=== PATIENT | female | born 1935 | race Caucasian/White ===

== ENCOUNTER 2016-10-17 18:28 | Emergency (ER) | payer MEDICARE, BC ==
--- NOTE | 2016-10-17 20:38 | EDM.PDOC ---
[id number] 2d DONT FEEL GOOD ALL OVER Time Seen by Provider: 10/17/16 19:40 Source of Information: Reports: Patient, Family History Limitations: Reports: No Limitations - History of Present Illness INITIAL COMMENTS - FREE TEXT/NARRATIVE: 80-year-old female with a history of a stroke in 2012 causing some chronic confusion, who also has developed dementia usually gets around well with the assistance of her . Today she feels weak, generalized malaise and her is having difficulty ambulating her. She has no specific complaints, no fever or chills, no shortness of breath, nausea or vomiting, just doesn't feel good. No dysuria, no recent falls. Tonight she told her she wanted to come to the hospital. When I asked her what was wrong she said "nothing". Onset: Gradual (Apparently over the last 24 hours) Location: Reports: Generalized Severity: Mild Associated Symptoms: Reports: Weakness. Denies: Chest Pain, Cough, Fever/Chills , Headaches, Nausea/Vomiting, Shortness of Breath, Syncope denies Pain Score (Numeric/FACES): 0 - Related Data Allergies Allergy/AdvReac Type Severity Reaction Status Date / Time No Known Allergies Allergy Verified 10/17/16 19:21 Home Meds: Home Meds Alendronate Sodium [Fosamax] 70 mg PO WEEKLY 02/08/13 [History] Hydrochlorothiazide 12.5 mg PO DAILY 02/08/13 [History] Multivitamin [Multivitamins] 1 each PO DAILY 02/08/13 [History] Omeprazole [Prilosec] 20 mg PO DAILY 02/08/13 [History] Simvastatin [Zocor] 40 mg PO BEDTIME 02/08/13 [History] Warfarin [Coumadin] 2.5 mg PO DAILY@1300 90 Days 02/14/13 [Rx] Potassium Chloride 1 tab PO DAILY 11/21/14 [History] Metoprolol Tartrate 50 mg PO BEDTIME 10/17/16 [History] Past Medical History HEENT History: Reports: Impaired Vision Cardiovascular History: Reports: High Cholesterol, Hypertension Genitourinary History: Reports: UTI, Recurrent Other Genitourinary History: recent uti 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: Neurological History: Reports: CVA, TIA Psychiatric History: Reports: Dementia - Infectious Disease History Infectious Disease History: Reports: Chicken Pox, Measles, Mumps - Past Surgical History GI Surgical History: Reports: Appendectomy Social & Family History - Family History Cardiac: Reports: Hypertension, [place] Neurological: Reports: CVA - Tobacco Use Smoking Status *Q: Never Smoker Second Hand Smoke Exposure: No - Caffeine Use Caffeine Use: Reports: Soda, Tea - Alcohol Use Days Per Week of Alcohol Use: 0 Number of Drinks Per Day: 1 Total Drinks Per Week: 0 - Recreational Drug Use Recreational Drug Use: No - Living Situation & Occupation Living situation: Reports: , with Spouse Occupation: Retired ED ROS GENERAL - Review of Systems Review Of Systems: See Below Constitutional: Reports: Malaise, Weakness. Denies: Fever, Chills HEENT: Reports: No Symptoms Respiratory: Denies: Shortness of Breath, Cough Cardiovascular: Denies: Chest Pain Endocrine: Reports: Fatigue GI/Abdominal: Denies: Abdominal Pain, Nausea, Vomiting : Reports: No Symptoms Skin: Reports: No Symptoms Neurological: Denies: Dizziness, Headache Psychiatric: Reports: Other (Has some ongoing and worsening dementia) ED EXAM, GENERAL - Physical Exam Exam: See Below Exam Limited By: No Limitations General Appearance: Alert, No Apparent Distress Eye Exam: Bilateral Eye: EOMI, Normal Inspection Respiratory/Chest: No Respiratory Distress, Lungs Clear Cardiovascular: Regular Rate, Rhythm GI/Abdominal: Soft, Non-Tender Extremities: Normal Inspection Neurological: Alert, No Motor/Sensory Deficits Psychiatric: Normal Affect, Normal Mood Skin Exam: Warm, Dry Course - Vital Signs Last Recorded V/S: Last Vital Signs Temp 97.2 F 10/17/16 19:35 Pulse 58 L 10/17/16 20:44 Resp 18 10/17/16 20:44 BP 145/82 H 10/17/16 20:44 Pulse Ox 98 10/17/16 20:44 - Orders/Labs/Meds Orders: Active Orders 24 hr Category Date Time Status CULTURE URINE [RM] Stat Lab 10/17/16 21:05 Received Labs: Laboratory Tests 10/17/16 10/17/16 10/17/16 Range/Units 20:06 20:06 20:44 WBC 9.9 (4.5-11.0) K/uL RBC 4.60 (3.30-5.50) M/uL Hgb 13.7 (12.0-15.0) g/dL Hct 41.4 (36.0-48.0) % MCV 90 (80-98) fL MCH 30 (27-31) pg MCHC 33 (32-36) % Plt Count 319 (150-400) K/uL Neut % (Auto) 64 (36-66) % Lymph % (Auto) 23 L (24-44) % [place] % (Auto) 9 H (2-6) % Eos % (Auto) 4 (2-4) % Baso % (Auto) 1 (0-1) % Sodium 142 (140-148) mmol/L Potassium 3.6 (3.6-5.2) mmol/L Chloride 105 (100-108) mmol/L Carbon Dioxide 28 (21-32) mmol/L Anion Gap 9.1 (5.0-14.0) mmol/L BUN 19 H (7-18) mg/dL Creatinine 1.1 H (0.6-1.0) mg/dL Est Cr Clr Drug Dosing 28.32 mL/min Estimated GFR (MDRD) 48 L (>60) Glucose 102 (74-106) mg/dL Calcium 8.8 (8.5-10.1) mg/dL Total Bilirubin 0.4 (0.2-1.0) mg/dL AST 19 (15-37) U/L ALT 19 (12-78) U/L Alkaline Phosphatase 83 (46-116) U/L Troponin I < 0.017 (0.000-0.056) ng/mL Total Protein 7.9 (6.4-8.2) g/dL Albumin 3.4 (3.4-5.0) g/dL Globulin 4.5 H (2.3-3.5) g/dL Albumin/Globulin Ratio 0.8 L (1.2-2.2) Urine Color Yellow Urine Appearance Clear Urine pH 5.0 (4.5-8.0) Ur Specific [place] 1.020 (1.008-1.030) Urine Protein Negative (NEGATIVE) mg/dL Urine Glucose (UA) Normal (NEGATIVE) mg/dL Urine Ketones Negative (NEGATIVE) mg/dL Urine Occult Blood Moderate (NEGATIVE) Urine Nitrite Positive H (NEGATIVE) Urine Bilirubin Negative (NEGATIVE) Urine Urobilinogen Normal (NORMAL) mg/dL Ur Leukocyte Esterase Negative (NEGATIVE) Urine RBC 0-5 (0-5) Urine WBC 10-20 H (0-5) Ur Epithelial Cells Few Amorphous Sediment Not seen Urine Bacteria Many Urine Mucus Few - Re-Assessments/Exams Free Text/Narrative Re-Assessment/Exam: 10/17/16 20:38 A mini cath UA was obtained, along with a CBC CMP and troponin. 10/17/16 21:11 Her labs were all reassuring other than bacteria and nitrite positive UA. A culture will be started and the patient was put on Macrodantin 100 mg twice daily for 5 days. They can return anytime if worsening or concerns. Departure - Departure Time of Disposition: 21:46 Disposition: Home, Self-Care 01 Condition: good Clinical Impression: Cystitis - Discharge Information Instructions: Interstitial Cystitis Referrals: PCP,None [Primary Care Provider] - Forms: ED Department Discharge Care Plan Goals: Take one dose of antibiotic twice daily for a total of 5 days. Save remaining antibiotic for a possible future infection. Return to ER for evaluation if becoming weaker or other concerns. - My Orders Last 24 Hours: My Active Orders 10/17/16 21:05 CULTURE URINE [RM] Stat - Assessment/Plan Last 24 Hours: My Active Orders 10/17/16 21:05 CULTURE URINE [RM] Stat
[2016-10-17 20:45] VITALS: BP 145/82
== END 2016-10-17 21:46 | disposition home or self-care (01) ==
LOC: JP.ED 18:28
DX: N30.90 Cystitis, unspecified without hematuria (principal); I10 Essential (primary) hypertension; E78.00 Pure hypercholesterolemia, unspecified; Z87.440 Personal history of urinary (tract) infections; Z86.73 Personal history of transient ischemic attack (TIA), and cerebral infarction without residual deficits; Z79.899 Other long term (current) drug therapy; Z79.01 Long term (current) use of anticoagulants; Z90.49 Acquired absence of other specified parts of digestive tract
CPT/HCPCS: 36415; 80053; 81001; 84484; 85025; 87086; 87088; 87186; 99283; 99285

== ENCOUNTER 2016-11-12 19:17 | Inpatient (IN) | payer MEDICARE, BC ==
--- NOTE | 2016-11-12 19:44 | EDM.PDOC ---
[id number] 2d DOESNT FEEL GOOD Time Seen by Provider: 11/12/16 19:44 Source of Information: Reports: Patient, Family History Limitations: Reports: No Limitations - History of Present Illness INITIAL COMMENTS - FREE TEXT/NARRATIVE: pt was brouight to the er because she does not feel right. She has a low grade temp. She has not been vomiting but she did not eat tonight. She is weaker with her walking and gets quite sob when she walks. She denies chest pain. Onset: Gradual Duration: Day(s):, Other ( gradually weaker. She has a past history of a stroke , ) Location: Reports: Generalized Severity: Moderate Associated Symptoms: Reports: Loss of Appetite, Malaise, Shortness of Breath denies pain Pain Score (Numeric/FACES): 0 - Related Data Allergies Allergy/AdvReac Type Severity Reaction Status Date / Time No Known Allergies Allergy Verified 11/12/16 19:30 Home Meds: Home Meds Alendronate Sodium [Fosamax] 70 mg PO WEEKLY 02/08/13 [History] Hydrochlorothiazide 12.5 mg PO DAILY 02/08/13 [History] Multivitamin [Multivitamins] 1 each PO DAILY 02/08/13 [History] Omeprazole [Prilosec] 20 mg PO DAILY 02/08/13 [History] Simvastatin [Zocor] 40 mg PO BEDTIME 02/08/13 [History] Potassium Chloride 10 meq PO DAILY 11/21/14 [History] Metoprolol Tartrate 50 mg PO BEDTIME 10/17/16 [History] Latanoprost 1 drop EYEBOTH BEDTIME 11/12/16 [History] Warfarin [Coumadin] 2.5 mg PO BEDTIME 11/12/16 [History] Cephalexin 500 mg PO BID #7 capsule 11/14/16 [Rx] Past Medical History HEENT History: Reports: Impaired Vision Cardiovascular History: Reports: High Cholesterol, Hypertension Genitourinary History: Reports: UTI, Recurrent Other Genitourinary History: 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 uti 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: Neurological History: Reports: CVA, TIA, Other (See Below) Other Neuro History: x2 strokes Psychiatric History: Reports: Dementia - Infectious Disease History Infectious Disease History: Reports: Chicken Pox, Measles - Past Surgical History GI Surgical History: Reports: Appendectomy Social & Family History - Family History Cardiac: Reports: Hypertension, [place] Neurological: Reports: CVA - Tobacco Use Smoking Status *Q: Never Smoker Second Hand Smoke Exposure: No - Caffeine Use Caffeine Use: Reports: Coffee, Soda - Alcohol Use Days Per Week of Alcohol Use: 0 Number of Drinks Per Day: 1 Total Drinks Per Week: 0 - Recreational Drug Use Recreational Drug Use: No - Living Situation & Occupation Living situation: Reports: , with Spouse Occupation: Retired ED ROS GENERAL - Review of Systems Review Of Systems: See Below Constitutional: Reports: Fever, Chills, Malaise HEENT: Reports: No Symptoms, Other (pt has not been drinking well. ) Respiratory: Reports: Shortness of Breath Cardiovascular: Reports: No Symptoms Endocrine: Reports: No Symptoms GI/Abdominal: Reports: No Symptoms : Reports: Other (pt was treated for a uti about 10 days ago. ) Musculoskeletal: Reports: No Symptoms Skin: Reports: No Symptoms ED EXAM, GENERAL - Physical Exam Exam: See Below Free Text/Narrative:: pt arrived with dizziness. She has not been drinking fluids well. She started out with a low o2 sat but that has improved. She has been alot weaker when she walks. She refused to drink and eat tonight. She has a history of a stroke and dementia. General Appearance: Alert, Anxious, Other (pt is not able to give a good history. ) Ears: Normal TMs Nose: Normal Inspection Throat/Mouth: Normal Inspection Head: Atraumatic Neck: Normal Inspection Respiratory/Chest: No Respiratory Distress, Other ( o2 sats were low but are now better. ) Cardiovascular: Regular Rate, Rhythm GI/Abdominal: Soft, Non-Tender Rectal (Female) Exam: Deferred Back Exam: Normal Inspection Extremities: Normal Inspection Neurological: Alert, Oriented, Other (pt has some memory issues. ) Course - Vital Signs Last Recorded V/S: Last Vital Signs Temp 36.6 C 11/14/16 07:47 Pulse 65 11/14/16 07:47 Resp 20 11/14/16 07:47 BP 139/79 11/14/16 07:47 Pulse Ox 96 11/14/16 07:47 - Orders/Labs/Meds Labs: Laboratory Tests 11/12/16 11/12/16 11/12/16 Range/Units 19:53 19:53 19:53 WBC 8.3 (4.5-11.0) K/uL RBC 4.39 (3.30-5.50) M/uL Hgb 13.0 (12.0-15.0) g/dL Hct 39.7 (36.0-48.0) % MCV 90 (80-98) fL MCH 30 (27-31) pg MCHC 33 (32-36) % Plt Count 312 (150-400) K/uL Neut % (Auto) 64 (36-66) % Lymph % (Auto) 20 L (24-44) % [place] % (Auto) 10 H (2-6) % Eos % (Auto) 6 H (2-4) % Baso % (Auto) 1 (0-1) % PT 22.1 H (9.5-12.0) sec INR 2.01 H (0.80-1.20) Sodium 141 (140-148) mmol/L Potassium 3.7 (3.6-5.2) mmol/L Chloride 106 (100-108) mmol/L Carbon Dioxide 27 (21-32) mmol/L Anion Gap 8.5 (5.0-14.0) mmol/L BUN 29 H D (7-18) mg/dL Creatinine 1.1 H (0.6-1.0) mg/dL Est Cr Clr Drug Dosing 28.32 mL/min Estimated GFR (MDRD) 48 L (>60) Glucose 100 (74-106) mg/dL Lactic Acid (0.4-2.0) mmol/L Calcium 8.9 (8.5-10.1) mg/dL Total Bilirubin 0.3 (0.2-1.0) mg/dL AST 17 (15-37) U/L ALT 18 (12-78) U/L Alkaline Phosphatase 64 (46-116) U/L Civ-[id number] Pept (5-450) pg/mL Total Protein 7.2 (6.4-8.2) g/dL Albumin 3.2 L (3.4-5.0) g/dL Globulin 4.0 H (2.3-3.5) g/dL Albumin/Globulin Ratio 0.8 L (1.2-2.2) Urine Color Urine Appearance Urine pH (4.5-8.0) Ur Specific [place] (1.008-1.030) Urine Protein (NEGATIVE) mg/dL Urine Glucose (UA) (NEGATIVE) mg/dL Urine Ketones (NEGATIVE) mg/dL Urine Occult Blood (NEGATIVE) Urine Nitrite (NEGATIVE) Urine Bilirubin (NEGATIVE) Urine Urobilinogen (NORMAL) mg/dL Ur Leukocyte Esterase (NEGATIVE) Urine RBC (0-5) Urine WBC (0-5) Ur Epithelial Cells Amorphous Sediment Urine Bacteria Urine Mucus 11/12/16 11/12/16 11/12/16 Range/Units 20:09 20:17 20:35 WBC (4.5-11.0) K/uL RBC (3.30-5.50) M/uL Hgb (12.0-15.0) g/dL Hct (36.0-48.0) % MCV (80-98) fL MCH (27-31) pg MCHC (32-36) % Plt Count (150-400) K/uL Neut % (Auto) (36-66) % Lymph % (Auto) (24-44) % [place] % (Auto) (2-6) % Eos % (Auto) (2-4) % Baso % (Auto) (0-1) % PT (9.5-12.0) sec INR (0.80-1.20) Sodium (140-148) mmol/L Potassium (3.6-5.2) mmol/L Chloride (100-108) mmol/L Carbon Dioxide (21-32) mmol/L Anion Gap (5.0-14.0) mmol/L BUN (7-18) mg/dL Creatinine (0.6-1.0) mg/dL Est Cr Clr Drug Dosing mL/min Estimated GFR (MDRD) (>60) Glucose (74-106) mg/dL Lactic Acid 1.0 (0.4-2.0) mmol/L Calcium (8.5-10.1) mg/dL Total Bilirubin (0.2-1.0) mg/dL AST (15-37) U/L ALT (12-78) U/L Alkaline Phosphatase (46-116) U/L Pot-P-Gklslmojoqn Pept 212 (5-450) pg/mL Total Protein (6.4-8.2) g/dL Albumin (3.4-5.0) g/dL Globulin (2.3-3.5) g/dL Albumin/Globulin Ratio (1.2-2.2) Urine Color Yellow Urine Appearance Slightly cloudy Urine pH 5.0 (4.5-8.0) Ur Specific [place] 1.020 (1.008-1.030) Urine Protein Negative (NEGATIVE) mg/dL Urine Glucose (UA) Normal (NEGATIVE) mg/dL Urine Ketones Negative (NEGATIVE) mg/dL Urine Occult Blood Negative (NEGATIVE) Urine Nitrite Positive H (NEGATIVE) Urine Bilirubin Negative (NEGATIVE) Urine Urobilinogen Normal (NORMAL) mg/dL Ur Leukocyte Esterase Negative (NEGATIVE) Urine RBC 0-5 (0-5) Urine WBC 0-5 (0-5) Ur Epithelial Cells Not seen Amorphous Sediment Not seen Urine Bacteria Many Urine Mucus Not seen Meds: Medications Discontinued Medications Generic Name Dose Route Start Last Admin Trade Name Freq PRN Reason Stop Dose Admin Acetaminophen 650 mg 11/12/16 23:09 Tylenol PO Q4H PRN Pain (Mild 1-3)/fever Albuterol 2.5 mg 11/12/16 23:09 Proventil Neb Soln NEB Q4H PRN Shortness Of Breath/wheezing Bisacodyl 5 mg 11/12/16 23:09 Dulcolax PO DAILY PRN Constipation Docusate Sodium 100 mg 11/12/16 23:09 Colace PO BID PRN Constipation Hydrochlorothiazide 12.5 mg 11/13/16 09:00 11/14/16 09:21 Hydrochlorothiazide PO 12.5 mg DAILY FCO Administration Sodium Chloride 1,000 mls @ 250 mls/hr 11/12/16 20:45 11/13/16 01:25 Normal Saline IV 250 mls/hr ASDIRECTED FCO Administration Ceftriaxone Sodium 1 gm/ 50 mls @ 100 mls/hr 11/12/16 20:59 11/12/16 21:25 Sodium Chloride IV 11/12/16 21:28 100 mls/hr ONETIME ONE Administration Sodium Chloride 1,000 mls @ 75 mls/hr 11/12/16 23:09 Normal Saline IV ASDIRECTED FCO Ceftriaxone Sodium 1 gm/ 50 mls @ 100 mls/hr 11/13/16 21:10 11/13/16 20:54 Sodium Chloride IV 100 mls/hr Q24H FCO Administration Latanoprost 0 ml 11/13/16 21:00 11/13/16 20:55 Xalatan 0.005% Ophth Soln EYEBOTH 1 drop BEDTIME FCO Administration Lorazepam 0.5 mg 11/12/16 23:09 Ativan IV Q6H PRN Nausea/Vomiting Metoprolol Tartrate 50 mg 11/13/16 21:00 11/13/16 20:55 Lopressor PO 50 mg BEDTIME FCO Administration Metoprolol Tartrate 50 mg 11/13/16 01:02 11/13/16 01:19 Lopressor PO 11/13/16 01:03 50 mg ONETIME ONE Administration Ondansetron HCl 4 mg 11/12/16 23:09 Zofran Odt PO Q6H PRN Nausea able to take PO Ondansetron HCl 4 mg 11/12/16 23:09 Zofran IV Q4H PRN Nausea/Vomiting Oxycodone HCl 5 mg 11/12/16 23:09 Oxycodone PO Q4H PRN Pain (moderate 4-6) Pantoprazole Sodium 40 mg 11/13/16 07:30 11/14/16 07:57 Protonix PO 40 mg ACBREAKFAST FCO Administration Potassium Chloride 10 meq 11/13/16 09:00 11/14/16 09:21 Potassium Chloride PO 10 meq DAILY FCO Administration Warfarin Sodium 2.5 mg 11/13/16 21:00 11/13/16 20:56 Coumadin PO 2.5 mg BEDTIME FCO Administration - Re-Assessments/Exams Free Text/Narrative Re-Assessment/Exam: 11/12/16 21:36 urine is infected. her wbc is not elevated. Her urine looks concentrated. she has a definite uti. 11/15/16 07:29 Departure - Departure Time of Disposition: 07:50 Disposition: Admitted As Inpatient 64 Condition: fair Clinical Impression: Dehydration UTI (urinary tract infection) Qualifiers: Indwelling urinary catheter type: unspecified Encounter type: initial encounter - Discharge Information
[2016-11-12] MEDS ORDERED: cefTRIAXone 1 GM in Sodium Chloride 0.9% 50 ML IV ONE (20:59)
[2016-11-12] MEDS: Sodium Chloride 0.9% 1,000 ML IV SCH (21:24)
--- NOTE | 2016-11-12 22:55 | PCM.HP ---
H&P History of Present Illness - General Date of Service: 11/12/16 Admit Problem/Dx: Admission Diagnosis/Problem Admission Diagnosis/Problem Urinary tract infection Source of Information: Patient History Limitations: Reports: Altered Mental Status (dementia) - History of Present Illness Initial Comments - Free Text/Narative: - History of Present Illness -brought to the ER because she does not feel right with concerns of dizziness. She has a low grade temp. She has not been vomiting but she did not eat tonight. She is weaker with her walking and gets quite sob when she walks. She denies chest pain. She has not been drinking fluids well. She started out with a low o2 sat but that has improved. She has been a lot weaker when she walks. She has a history of a stroke and dementia. : Reports: Other treated for a urinary tract infection about 10 days ago. LABS: Urine is infected + nitrate, concentrated, wbc is not elevated. a; urinary tract infection, weakness, dehydration p; admit to [address] [place] [address] for IV therapy and medication management. Onset of Symptoms: Reports: Today Location: Reports: Generalized Improves with: Reports: None Worsens with: Reports: None Associated Symptoms: Reports: Confusion ( reports more confused today), Fever/Chills, Loss of Appetite, Weakness denies pain Pain Score (Numeric/FACES): 0 - Related Data Allergies/Adverse Reactions: Allergies Allergy/AdvReac Type Severity Reaction Status Date / Time No Known Allergies Allergy Verified 11/12/16 19:30 Home Medications: Home Meds Alendronate Sodium [Fosamax] 70 mg PO WEEKLY 02/08/13 [History] Hydrochlorothiazide 12.5 mg PO DAILY 02/08/13 [History] Multivitamin [Multivitamins] 1 each PO DAILY 02/08/13 [History] Omeprazole [Prilosec] 20 mg PO DAILY 02/08/13 [History] Simvastatin [Zocor] 40 mg PO BEDTIME 02/08/13 [History] Potassium Chloride 10 meq PO DAILY 11/21/14 [History] Metoprolol Tartrate 50 mg PO BEDTIME 10/17/16 [History] Latanoprost [Latanoprost] 1 drop EYEBOTH BEDTIME 11/12/16 [History] Warfarin [Coumadin] 2.5 mg PO BEDTIME 11/12/16 [History] Past Medical History HEENT History: Reports: Impaired Vision Cardiovascular History: Reports: High Cholesterol, Hypertension Genitourinary History: Reports: UTI, Recurrent Other Genitourinary History: recent uti 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: Neurological History: Reports: CVA, TIA, Other (See Below) Other Neuro History: x2 strokes Psychiatric History: Reports: Dementia - Infectious Disease History Infectious Disease History: Reports: Chicken Pox, Measles - Past Surgical History GI Surgical History: Reports: Appendectomy Social & Family History - Family History Cardiac: Reports: Hypertension, [place] Neurological: Reports: CVA - Tobacco Use Smoking Status *Q: Never Smoker Second Hand Smoke Exposure: No - Caffeine Use Caffeine Use: Reports: Coffee, Soda - Alcohol Use Days Per Week of Alcohol Use: 0 Number of Drinks Per Day: 1 Total Drinks Per Week: 0 - Recreational Drug Use Recreational Drug Use: No - Living Situation & Occupation Living situation: Reports: , with Spouse Occupation: Retired H&P Review of Systems - Review of Systems: Review Of Systems: See Below General: Reports: ROS unobtainable (due to dementia. ) Exam - Exam Exam: See Below - Vital Signs Vital Signs: Last Vital Signs Temp 36.7 C 11/12/16 21:55 Pulse 58 L 11/12/16 21:55 Resp 16 11/12/16 21:55 BP 132/84 11/12/16 21:55 Pulse Ox 95 11/12/16 21:55 Weight: 65.771 kg - Exam General: Alert, Cooperative, Other (dementia noted) HEENT: PERRLA, Conjunctiva Clear, EACs Clear, EOMI, Hearing Intact, Mucosa Moist & [place], Nares Patent, Normal Nasal Septum, Posterior Pharynx Clear, Pupils Equal, Pupils Reactive, TMs Clear, Other (natural teeth present) Neck: Supple, Trachea Midline Lungs: Clear to Auscultation, Normal Respiratory Effort Cardiovascular: Regular Rate, Regular Rhythm, Normal S1, Normal S2 Abdomen: Normal Bowel Sounds, Soft, Pelvis Stable (Female) Exam: Normal External Exam Rectal (Female) Exam: Deferred Back Exam: Normal Inspection, Full Range of Motion Extremities: Normal Inspection, Normal Pulses Peripheral Pulses: 2+: Radial (L), Radial (R), Dorsalis Pedis (L), Dorsalis Pedis (R) Skin: Warm, Dry, Intact Neurological: Reflexes Equal Bilateral, Strength Equal Bilateral Neuro Extensive - Mental Status: Other (dementia present. pleasant, smiling female. answer in one word symptom.) Psychiatric: Alert, Normal Affect, Normal Mood (happy and pleasant) - Patient Data Result Diagrams: 11/12/16 19:53 11/12/16 19:53 *Q Meaningful Use (ADM) - VTE *Q VTE Criteria *Q: - Stroke *Q Stroke Criteria *Q: - AMI *Q AMI Criteria *Q: - Problem List (1) Urinary tract infection SNOMED Code(s): 73378784 ICD Code: N39.0 - URINARY TRACT INFECTION, SITE NOT SPECIFIED Status: Acute Priority: High Current Visit: Yes Qualifiers: Indwelling urinary catheter type: unspecified Encounter type: initial encounter (2) Dementia SNOMED Code(s): 11979953 ICD Code: F03.90 - UNSPECIFIED DEMENTIA WITHOUT BEHAVIORAL DISTURBANCE Status: Acute Priority: High Current Visit: Yes Qualifiers: Dementia type: associated with other underlying disease Dementia behavioral disturbance: without behavioral disturbance Qualified Code(s): F02.80 - Dementia in other diseases classified elsewhere without behavioral disturbance (3) Gastroesophageal reflux disease SNOMED Code(s): 101345309 ICD Code: K21.9 - GASTRO-ESOPHAGEAL REFLUX DISEASE WITHOUT ESOPHAGITIS Status: Chronic Priority: Medium Current Visit: No (4) HTN, Benign hypertension SNOMED Code(s): 14549671 ICD Code: I10 - ESSENTIAL (PRIMARY) HYPERTENSION Status: Chronic Priority : Medium Current Visit: No (5) Ischemic stroke/CVA SNOMED Code(s): 908816626 ICD Code: I63.9 - CEREBRAL INFARCTION, UNSPECIFIED Status: Chronic Priority: Low Current Visit: No Problem Details: 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 She has a low grade temp. She has not been vomiting but she did not eat tonight. She is weaker with her walking and gets quite sob when she walks. She denies chest pain. She has not been drinking fluids well. She started out with a low o2 sat but that has improved. She has been a lot weaker when she walks. She has a history of a stroke and dementia. : Reports: Other treated for a urinary tract infection about 10 days ago. LABS: Urine is infected + nitrate, concentrated, wbc is not elevated. a; urinary tract infection, weakness, dehydration p; admit to [facility] for IV therapy and medication management. URINARY TRACT INFECTION -Blood cultures pending -IV Rocephin 1 gram -IV fluids ; one liter given in ER, 2nd liter at 75ml/hr Dementia, hx of ischemic CVA -close monitoring -at risk for falls GERD -continue PPI ; Protonix 40mg daily Hypertension and CAD -continue Lopressor 50 mg at hs -continue HCTZ 12.5 mg po daily -continue Potassium 10 meq daily -continue Coumadin 2.5mg daily Maintenance issues -DVT prophylaxis; current Coumadin therapy -GI Prophylaxis; continue PPI -Boyle catheter; not indicated -Nutrition; regular diet -referral OT and social work; discharge planning CODE STATUS; FULL ADMISSION STATUS: will be admitted to inpatient status. expect at least a 2 night hospital stay for evaluation and management of problems as outlined above. At the time of this admission, I do not reasonably expected evaluation and management of this problem will require more than a 96 hour hospital stay. DISPOSITION: home PRIMARY CARE PROVIDER: none listed HOSPITALIST: Dr. Kwon
[2016-11-12] MEDS ORDERED: Bisacodyl 5 MG Tab PO PRN (23:09)
[2016-11-12] MEDS ORDERED: Sodium Chloride 0.9% 1,000 ML IV SCH (23:09)
[2016-11-12] MEDS ORDERED: LORazepam 2 MG/ML MDV IV PRN (23:09)
[2016-11-12] MEDS ORDERED: Ondansetron 4 MG/2 ML SDV IV PRN (23:09)
[2016-11-12] MEDS ORDERED: Docusate Sodium 100 MG Cap PO PRN (23:09)
[2016-11-12] MEDS ORDERED: Acetaminophen 325 MG Tab PO PRN (23:09)
[2016-11-12] MEDS ORDERED: oxyCODONE 5 MG Tab PO PRN (23:09)
[2016-11-12] MEDS ORDERED: Ondansetron 4 MG Tab.DIS PO PRN (23:09)
[2016-11-12] MEDS ORDERED: Albuterol 0.083% 2.5 MG/3 ML Neb Soln NEB PRN (23:09)
[2016-11-13] MEDS ORDERED: Metoprolol Tartrate 50 MG Tab PO ONE (01:02)
--- NOTE | 2016-11-13 01:21 | PCM.SN ---
- Free Text/Narrative Note: time 12:58 am; call from [address] [place] [address]; concerns of increased blood pressure; 192/98 and 165/101 Mrs. Becerril is sleeping and in no distress a; hypertension p; given evening dose of Lopressor 50 mg po now. recheck blood pressure in 4 hours.
[2016-11-13] MEDS: Sodium Chloride 0.9% 1,000 ML IV SCH (01:25)
[2016-11-13] MEDS: Potassium Chloride 10 MEQ Cap.ER PO SCH (09:24)
[2016-11-13] MEDS: Pantoprazole 40 MG Tab.CR PO SCH (09:24)
[2016-11-13] MEDS: Hydrochlorothiazide 12.5 MG Cap PO SCH (09:24)
--- NOTE | 2016-11-13 09:26 | CR ---
Two-view chest Comparison: March 2011. The heart and vascular structures are stable. There are no infiltrates or effusions. Impression: 1. No acute findings.
--- NOTE | 2016-11-13 15:42 | PCM.PN ---
- General Info Date of Service: 11/13/16 Functional Status: Reports: pain controlled, ambulating, urinating - Review of Systems General: Reports: Weakness Neurological: Reports: Confusion Systems Review Comment:: No acute event since the time of admission. She remains confused beyond baseline but seems better this morning. She is not having fevers. Urine culture is growing gram-negative rods. No complaints of abdominal pain or nausea. Ambulating to the bathroom and back with frequent urination. - Patient Data Vitals - most recent: Last Vital Signs Temp 35.6 C 11/13/16 12:13 Pulse 59 L 11/13/16 12:13 Resp 16 11/13/16 12:13 BP 183/94 H 11/13/16 12:13 Pulse Ox 98 11/13/16 12:13 Weight - most recent: 65.78 kg I&O - last 24 hours: Intake & Output 11/13/16 11/13/16 11/13/16 06:59 14:59 22:59 Intake Total 1200 118 Output Total 200 300 Balance 1000 -182 Lab Results last 24 hrs: Laboratory Results - last 24 hr 11/13/16 11/13/16 Range/Units 05:55 05:55 WBC 8.6 (4.5-11.0) K/uL RBC 4.22 (3.30-5.50) M/uL Hgb 12.5 (12.0-15.0) g/dL Hct 38.2 (36.0-48.0) % MCV 91 (80-98) fL MCH 30 (27-31) pg MCHC 33 (32-36) % Plt Count 304 (150-400) K/uL Neut % (Auto) 66 (36-66) % Lymph % (Auto) 20 L (24-44) % [place] % (Auto) 9 H (2-6) % Eos % (Auto) 6 H (2-4) % Baso % (Auto) 1 (0-1) % Sodium 143 (140-148) mmol/L Potassium 3.7 (3.6-5.2) mmol/L Chloride 110 H (100-108) mmol/L Carbon Dioxide 23 (21-32) mmol/L Anion Gap 13.7 (5.0-14.0) mmol/L BUN 20 H (7-18) mg/dL Creatinine 0.9 (0.6-1.0) mg/dL Est Cr Clr Drug Dosing 34.62 mL/min Estimated GFR (MDRD) 60 (>60) Glucose 94 (74-106) mg/dL Calcium 8.2 L (8.5-10.1) mg/dL Med Orders - Current: Current Medications Acetaminophen (Tylenol) 650 mg PO Q4H PRN PRN Reason: Pain (Mild 1-3)/fever Albuterol (Proventil Neb Soln) 2.5 mg NEB Q4H PRN PRN Reason: Shortness Of Breath/wheezing Bisacodyl (Dulcolax) 5 mg PO DAILY PRN PRN Reason: Constipation Docusate Sodium (Colace) 100 mg PO BID PRN PRN Reason: Constipation Hydrochlorothiazide (Hydrochlorothiazide) 12.5 mg PO DAILY [facility] Last Admin: 11/13/16 09:24 Dose: 12.5 mg Sodium Chloride (Normal Saline) 1,000 mls @ 75 mls/hr IV ASDIRECTED [facility] Ceftriaxone Sodium 1 gm/ (Sodium Chloride) 50 mls @ 100 mls/hr IV Q24H [facility] Latanoprost (Xalatan 0.005% Ophth Soln) 0 ml EYEBOTH BEDTIME [facility] Lorazepam (Ativan) 0.5 mg IV Q6H PRN PRN Reason: Nausea/Vomiting Metoprolol Tartrate (Lopressor) 50 mg PO BEDTIME [facility] Ondansetron HCl (Zofran Odt) 4 mg PO Q6H PRN PRN Reason: Nausea able to take PO Ondansetron HCl (Zofran) 4 mg IV Q4H PRN PRN Reason: Nausea/Vomiting Oxycodone HCl (Oxycodone) 5 mg PO Q4H PRN PRN Reason: Pain (moderate 4-6) Pantoprazole Sodium (Protonix) 40 mg PO ACBREAKFAST [facility] Last Admin: 11/13/16 09:24 Dose: 40 mg Potassium Chloride (Potassium Chloride) 10 meq PO DAILY [facility] Last Admin: 11/13/16 09:24 Dose: 10 meq Warfarin Sodium (Coumadin) 2.5 mg PO BEDTIME [facility] Discontinued Medications Sodium Chloride (Normal Saline) 1,000 mls @ 250 mls/hr IV ASDIRECTED [facility] Last Admin: 11/13/16 01:25 Dose: 250 mls/hr Ceftriaxone Sodium 1 gm/ (Sodium Chloride) 50 mls @ 100 mls/hr IV ONETIME ONE Stop: 11/12/16 21:28 Last Admin: 11/12/16 21:25 Dose: 100 mls/hr Metoprolol Tartrate (Lopressor) 50 mg PO ONETIME ONE Stop: 11/13/16 01:03 Last Admin: 11/13/16 01:19 Dose: 50 mg - Exam Quality Assessment: No: supplemental oxygen General: alert, cooperative, no acute distress. No: oriented Neck: supple Lungs: Clear to auscultation, Normal respiratory effort Cardiovascular: Regular Rate, Regular Rhythm Abdomen: soft, no tenderness, no distension Extremities: no edema, no cyanosis Skin: warm, dry Psy/Mental Status: alert, normal affect - Problem List Review Problem List Initiated/Reviewed/Updated: Yes - My Orders Last 24 Hours: My Active Orders 11/13/16 09:15 PT Evaluation and Treatment [CONS] Routine - Plan Plan:: ASSESSMENT AND PLAN: Acute cystitis - contributing to increased confusion from baseline dementia. Clinically stable. Cultures pending. -Blood cultures pending -Continue ceftriaxone -Saline lock IV Dementia, hx of ischemic CVA - no behavior issues at this time. -close monitoring -at risk for falls GERD -continue PPI Hypertension and CAD - no active symptoms and clinically stable. -continue Lopressor 50 mg at hs -continue HCTZ 12.5 mg po daily -continue Potassium 10 meq daily -continue Coumadin 2.5mg daily Maintenance issues -DVT prophylaxis; current Coumadin therapy -GI Prophylaxis; continue PPI -Boyle catheter; not indicated -Nutrition; regular diet -referral OT and social work; discharge planning DISPOSITION: home with home health care, likely tomorrow Vineet Kwon M.D.
[2016-11-13] MEDS ORDERED: Latanoprost 0.005% Ophth Soln 2.5 ML Bottle EYEBOTH SCH (21:00)
[2016-11-13] MEDS ORDERED: Warfarin 5 MG Tab PO SCH (21:00)
[2016-11-13] MEDS ORDERED: Metoprolol Tartrate 50 MG Tab PO SCH (21:00)
[2016-11-13] MEDS ORDERED: cefTRIAXone 1 GM in Sodium Chloride 0.9% 50 ML IV SCH (21:10)
[2016-11-14 07:49] VITALS: BP 139/79
[2016-11-14] MEDS: Pantoprazole 40 MG Tab.CR PO SCH (07:57)
[2016-11-14] MEDS: Hydrochlorothiazide 12.5 MG Cap PO SCH (09:21)
[2016-11-14] MEDS: Potassium Chloride 10 MEQ Cap.ER PO SCH (09:21)
--- NOTE | 2016-11-14 11:04 | PCM.DCSUM1 ---
Discharge Summary - Hospital Course Brief History: 80-year-old female with history of dementia, cerebrovascular disease who presented with increasing confusion and weakness and was admitted for management of acute cystitis. - Discharge Data Discharge Date: 11/14/16 Discharge Disposition: Home, W Home Health Agency 06 Condition: Fair - Discharge Diagnosis/Problem(s) (1) Acute cystitis with positive culture SNOMED Code(s): 767964913 ICD Code: N30.00 - ACUTE CYSTITIS WITHOUT HEMATURIA Status: Acute (2) Dementia SNOMED Code(s): 78334355 ICD Code: F03.90 - UNSPECIFIED DEMENTIA WITHOUT BEHAVIORAL DISTURBANCE Status: Chronic Priority: High Qualifiers: Dementia type: associated with other underlying disease Dementia behavioral disturbance: without behavioral disturbance Qualified Code(s): F02.80 - Dementia in other diseases classified elsewhere without behavioral disturbance (3) Ischemic stroke/CVA SNOMED Code(s): 315678740 ICD Code: I63.9 - CEREBRAL INFARCTION, UNSPECIFIED Status: Chronic Priority: Low Problem Details: Expressive aphasia and right visual field defects - Patient Summary/Data Consults: Consultations 11/12/16 23:09 Consult to Case Management [CONS] Routine Comment: Physician Instructions: Quantity: Consult to Manager Lsw [CONS] Routine Comment: Physician Instructions: OT Evaluation and Treatment [CONS] Routine Please Evaluate and Treat. OT Reason for Consult: Discharge Planning This query below is only for informational purposes and is not editable. 11/13/16 09:15 PT Evaluation and Treatment [CONS] Routine Please Evaluate and Treat. PT Reason for Consult: weakness, dizzyness, dementia This query below is only for informational purposes and is not editable. Admission Diagnosis/Problem: Urinary tract infection Labs Pending at D/C: final results of the urine culture - gram-negative rods are growing at the time of discharge Hospital Course: Haydee presented to the emergency room with dizziness, decreased appetite and did not feel well. Workup in the emergency room was suggestive of acute cystitis. Given her dementia and concern for difficulty with outpatient management she was admitted to the hospital. IV antibiotics were initiated. Over the next 2 days she displayed a clinical improvement with improvement in her mental status. She has not had any fevers. She seems to be back to her baseline as far as her mental status with underlying dementia. She has been ambulating well with no complaints of dizziness. Appetite has been good. She does have some urinary frequency with the infection but otherwise is doing well clinically. Urine culture is pending at the time of discharge but I suspect that she will have an Escherichia coli and seems to be doing well with cephalosporins so these will be continued. Urine culture is growing gram- negative rods but final identification is pending. She will be discharged to home with her and will have a daughter helping out in the short-term. They're also interested in home health care and a [id number] form was completed. She will have 7 additional doses of cephalexin after hospital discharge. - Patient Instructions Diet: Regular Diet as Tolerated Activity: As Tolerated Driving: Do Not Drive Showering/Bathing: May Shower Notify Provider of: Fever, Increased Pain, Nausea and/or Vomiting Other/Special Instructions: 1. You were in the hospital for management of acute cystitis. I recommend that you take cephalexin (Keflex) 500 mg twice daily for 7 more doses. Your first dose is due tonight. This antibiotic may cause stomach upset so you should take it with food. 2. Continue your home medications as previously prescribed. 3. Please seek medical attention if you develop fever greater than 101, have sudden worsening of your confusion, severe abdominal pain or severe diarrhea. - Discharge Plan Prescriptions/Med Rec: Cephalexin 500 mg PO BID #7 capsule Home Medications: Home Meds Alendronate Sodium [Fosamax] 70 mg PO WEEKLY 02/08/13 [History] Hydrochlorothiazide 12.5 mg PO DAILY 02/08/13 [History] Multivitamin [Multivitamins] 1 each PO DAILY 02/08/13 [History] Omeprazole [Prilosec] 20 mg PO DAILY 02/08/13 [History] Simvastatin [Zocor] 40 mg PO BEDTIME 02/08/13 [History] Potassium Chloride 10 meq PO DAILY 11/21/14 [History] Metoprolol Tartrate 50 mg PO BEDTIME 10/17/16 [History] Latanoprost 1 drop EYEBOTH BEDTIME 11/12/16 [History] Warfarin [Coumadin] 2.5 mg PO BEDTIME 11/12/16 [History] Cephalexin 500 mg PO BID #7 capsule 11/14/16 [Rx] Patient Handouts: Urinary Tract Infection, Adult, Cephalexin tablets or capsules Referrals: PCP,None [Primary Care Provider] - (followup with your regular doctor if symptoms do not continue to improve or they get worse) - Discharge Summary/Plan Comment DC Time >30 min.: No (25) - Patient Data Vitals - Most Recent: Last Vital Signs Temp 36.6 C 11/14/16 07:47 Pulse 65 11/14/16 07:47 Resp 20 11/14/16 07:47 BP 139/79 11/14/16 07:47 Pulse Ox 96 11/14/16 07:47 Weight - Most Recent: 65.78 kg I&O - Last 24 hours: Intake & Output 11/13/16 11/14/16 11/14/16 22:59 06:59 14:59 Intake Total 100 Output Total 250 400 Balance -150 -400 Med Orders - Current: Current Medications Acetaminophen (Tylenol) 650 mg PO Q4H PRN PRN Reason: Pain (Mild 1-3)/fever Albuterol (Proventil Neb Soln) 2.5 mg NEB Q4H PRN PRN Reason: Shortness Of Breath/wheezing Bisacodyl (Dulcolax) 5 mg PO DAILY PRN PRN Reason: Constipation Docusate Sodium (Colace) 100 mg PO BID PRN PRN Reason: Constipation Hydrochlorothiazide (Hydrochlorothiazide) 12.5 mg PO DAILY [facility] Last Admin: 11/14/16 09:21 Dose: 12.5 mg Ceftriaxone Sodium 1 gm/ (Sodium Chloride) 50 mls @ 100 mls/hr IV Q24H [facility] Last Admin: 11/13/16 20:54 Dose: 100 mls/hr Latanoprost (Xalatan 0.005% Ophth Soln) 0 ml EYEBOTH BEDTIME [facility] Last Admin: 11/13/16 20:55 Dose: 1 drop Lorazepam (Ativan) 0.5 mg IV Q6H PRN PRN Reason: Nausea/Vomiting Metoprolol Tartrate (Lopressor) 50 mg PO BEDTIME [facility] Last Admin: 11/13/16 20:55 Dose: 50 mg Ondansetron HCl (Zofran Odt) 4 mg PO Q6H PRN PRN Reason: Nausea able to take PO Ondansetron HCl (Zofran) 4 mg IV Q4H PRN PRN Reason: Nausea/Vomiting Oxycodone HCl (Oxycodone) 5 mg PO Q4H PRN PRN Reason: Pain (moderate 4-6) Pantoprazole Sodium (Protonix) 40 mg PO ACBREAKFAST [facility] Last Admin: 11/14/16 07:57 Dose: 40 mg Potassium Chloride (Potassium Chloride) 10 meq PO DAILY [facility] Last Admin: 11/14/16 09:21 Dose: 10 meq Warfarin Sodium (Coumadin) 2.5 mg PO BEDTIME [facility] Last Admin: 11/13/16 20:56 Dose: 2.5 mg Discontinued Medications Sodium Chloride (Normal Saline) 1,000 mls @ 250 mls/hr IV ASDIRECTED [facility] Last Admin: 11/13/16 01:25 Dose: 250 mls/hr Ceftriaxone Sodium 1 gm/ (Sodium Chloride) 50 mls @ 100 mls/hr IV ONETIME ONE Stop: 11/12/16 21:28 Last Admin: 11/12/16 21:25 Dose: 100 mls/hr Sodium Chloride (Normal Saline) 1,000 mls @ 75 mls/hr IV ASDIRECTED [facility] Metoprolol Tartrate (Lopressor) 50 mg PO ONETIME ONE Stop: 11/13/16 01:03 Last Admin: 11/13/16 01:19 Dose: 50 mg *Q Meaningful Use (DIS) - VTE *Q VTE Criteria *Q: - Stroke *Q Stroke Criteria *Q: - AMI *Q AMI Criteria *Q:
== END 2016-11-14 11:37 | disposition home health service (06) | DRG 690 ==
LOC: JP.ED 19:17 → UNDOADMIN 22:15 → JP.MS 22:15 → UNDODISIN 11-14 11:37
PROVIDERS: ADMIT Internal Medicine; ATTEND Internal Medicine
DX: N30.00 Acute cystitis without hematuria (principal); B96.20 Unspecified Escherichia coli [E. coli] as the cause of diseases classified elsewhere; E86.0 Dehydration; I10 Essential (primary) hypertension; Z87.440 Personal history of urinary (tract) infections; F03.90 Unspecified dementia, unspecified severity, without behavioral disturbance, psychotic disturbance, mood disturbance, and anxiety; I69.820 Aphasia following other cerebrovascular disease; I69.812 Visuospatial deficit and spatial neglect following other cerebrovascular disease; R53.1 Weakness; R50.9 Fever, unspecified; R42 Dizziness and giddiness; R06.02 Shortness of breath; Z79.01 Long term (current) use of anticoagulants; K21.9 Gastro-esophageal reflux disease without esophagitis; E78.00 Pure hypercholesterolemia, unspecified; H54.7 Unspecified visual loss
CPT/HCPCS: 36415; 71020 ×2; 80053; 81001; 83605; 83880; 85025; 85610; 87086; 87088; 87186; 93005; 96365; 99285; J0696; J7040; J7050; 80048; 93010; 97162-GP; 97165-GO; 97530-GP; 97535-GP; 99284; A9270-GY

== ENCOUNTER 2016-11-17 10:49 | Emergency (ER) | payer MEDICARE, BC ==
[2016-11-17 11:08] VITALS: BP 151/75
--- NOTE | 2016-11-17 11:38 | EDM.PDOC ---
[id number] NOT FEELING WELL/VERY WEAK Time Seen by Provider: 11/17/16 11:10 Source of Information: Reports: Patient, Family History Limitations: Reports: Other - History of Present Illness INITIAL COMMENTS - FREE TEXT/NARRATIVE: 80-year-old female was brought in by her because she was feeling weak this morning. She has dementia and confusion, now that she is here she is unsure why she came in. She just was discharged from the hospital recently for a UTI and is on cephalexin. She denies headache, chest pain, shortness of breath , nausea or vomiting, in fact she says she feels fine. Onset: Unknown/Unsure - Related Data Allergies Allergy/AdvReac Type Severity Reaction Status Date / Time No Known Allergies Allergy Verified 11/17/16 11:07 Home Meds: Home Meds Alendronate Sodium [Fosamax] 70 mg PO WEEKLY 02/08/13 [History] Hydrochlorothiazide 12.5 mg PO DAILY 02/08/13 [History] Multivitamin [Multivitamins] 1 each PO DAILY 02/08/13 [History] Omeprazole [Prilosec] 20 mg PO DAILY 02/08/13 [History] Simvastatin [Zocor] 40 mg PO BEDTIME 02/08/13 [History] Potassium Chloride 10 meq PO DAILY 11/21/14 [History] Metoprolol Tartrate 50 mg PO BEDTIME 10/17/16 [History] Latanoprost 1 drop EYEBOTH BEDTIME 11/12/16 [History] Warfarin [Coumadin] 2.5 mg PO BEDTIME 11/12/16 [History] Cephalexin 500 mg PO BID #7 capsule 11/14/16 [Rx] Cephalexin [Take Home: Cephalexin 500 MG, 4 Cap Pack] 500 mg PO BID 11/17/16 [ History] Past Medical History - Past Health History Medical/Surgical History: Denies Medical/Surgical History HEENT History: Reports: Impaired Vision Cardiovascular History: Reports: High Cholesterol, Hypertension Genitourinary History: Reports: UTI, Recurrent Other Genitourinary History: recent uti MANAGER SPECIAL EVENTS History: Reports: Neurological History: Reports: CVA, TIA, Other (See Below) Other Neuro History: x2 strokes Psychiatric History: Reports: Dementia - Infectious Disease History Infectious Disease History: Reports: Other (See Below) Other Infectious Disease History: unknown - Past Surgical History GI Surgical History: Reports: Appendectomy Social & Family History - Family History Cardiac: Reports: Hypertension, [place] Neurological: Reports: CVA - Tobacco Use Smoking Status *Q: Never Smoker Used Tobacco, but Quit: No Second Hand Smoke Exposure: No - Caffeine Use Caffeine Use: Reports: Coffee, Soda, Tea - Alcohol Use Days Per Week of Alcohol Use: 0 Number of Drinks Per Day: 1 Total Drinks Per Week: 0 - Recreational Drug Use Recreational Drug Use: No - Living Situation & Occupation Living situation: Reports: , with Spouse Occupation: Retired ED ROS GENERAL - Review of Systems Review Of Systems: Unable To Obtain (Patient is confused and inconsistent,) Constitutional: Reports: Other (Her says she's been weaker) ED EXAM, GENERAL - Physical Exam Exam: See Below Exam Limited By: No Limitations General Appearance: Alert, No Apparent Distress Eye Exam: Bilateral Eye: EOMI, Normal Inspection Respiratory/Chest: No Respiratory Distress, Lungs Clear Cardiovascular: Regular Rate, Rhythm GI/Abdominal: Soft, Non-Tender Extremities: Normal Inspection. No: Pedal Edema Neurological: Alert, No Motor/Sensory Deficits Skin Exam: Warm, Dry Course - Vital Signs Last Recorded V/S: Last Vital Signs Temp 98.2 F 11/17/16 11:08 Pulse 60 11/17/16 11:08 Resp 14 11/17/16 11:08 BP 151/75 H 11/17/16 11:08 Pulse Ox 97 11/17/16 11:08 - Orders/Labs/Meds Labs: Laboratory Tests 11/17/16 11/17/16 Range/Units 11:28 11:28 WBC 7.0 (4.5-11.0) K/uL RBC 4.54 (3.30-5.50) M/uL Hgb 13.5 (12.0-15.0) g/dL Hct 41.0 (36.0-48.0) % MCV 90 (80-98) fL MCH 30 (27-31) pg MCHC 33 (32-36) % Plt Count 315 (150-400) K/uL Neut % (Auto) 68 H (36-66) % Lymph % (Auto) 18 L (24-44) % [place] % (Auto) 9 H (2-6) % Eos % (Auto) 5 H (2-4) % Baso % (Auto) 1 (0-1) % Sodium 139 L (140-148) mmol/L Potassium 4.5 (3.6-5.2) mmol/L Chloride 105 (100-108) mmol/L Carbon Dioxide 26 (21-32) mmol/L Anion Gap 12.5 (5.0-14.0) mmol/L BUN 18 (7-18) mg/dL Creatinine 1.0 (0.6-1.0) mg/dL Est Cr Clr Drug Dosing 31.15 mL/min Estimated GFR (MDRD) 53 L (>60) Glucose 93 (74-106) mg/dL Calcium 9.2 (8.5-10.1) mg/dL - Re-Assessments/Exams Free Text/Narrative Re-Assessment/Exam: 11/17/16 11:50 Vitals are normal, CBC and BMP were obtained for reassurance. 11/17/16 12:04 Patient remained stable, CBC and BMP were reassuring. She was discharged home. Departure - Departure Time of Disposition: 12:27 Disposition: Home, Self-Care 01 Condition: fair Clinical Impression: Weakness, Dizziness, nonspecific - Discharge Information Instructions: Weakness, [id number], Dizziness, [id number] Referrals: PCP,None [Primary Care Provider] - Forms: ED Department Discharge Care Plan Goals: Continue current medications, activity and diet as tolerated.
== END 2016-11-17 12:27 | disposition home or self-care (01) ==
LOC: JP.ED 10:49
DX: R53.1 Weakness (principal); R42 Dizziness and giddiness; H54.7 Unspecified visual loss; E78.00 Pure hypercholesterolemia, unspecified; I10 Essential (primary) hypertension; Z79.01 Long term (current) use of anticoagulants; Z90.49 Acquired absence of other specified parts of digestive tract; Z79.899 Other long term (current) drug therapy; Z87.440 Personal history of urinary (tract) infections
CPT/HCPCS: 36415; 80048; 85025; 99282; 99285

== ENCOUNTER 2017-02-09 17:31 | Emergency (ER) | payer MEDICARE, BC ==
[2017-02-09 17:54] VITALS: BP 159/98
--- NOTE | 2017-02-09 19:05 | EDM.PDOC ---
ED HPI GENERAL MEDICAL PROBLEM - General Chief Complaint: General Stated Complaint: DOESN'T FEEL WELL,CONFUSED Time Seen by Provider: 02/09/17 18:15 Source of Information: Reports: Patient, Family History Limitations: Reports: No Limitations - History of Present Illness INITIAL COMMENTS - FREE TEXT/NARRATIVE: 81-year-old female with dementia and previous CVA was well-known to this emergency room as she tells her she "needs to be seen" when she gets anxious and doesn't feel well. About 2-1/2 hours ago she started feeling shaky, confused, and weak and was having difficulty walking and told him he needed to bring her in. She now feels back to baseline. No fever or chills, no nausea or vomiting, she is eating well, denies dysuria. She has no pain. She presents very similar to her previous episodes which tend to last for a few hours and resolve. Onset: Sudden (About 2 hours ago) Location: Reports: Generalized Severity: Mild Associated Symptoms: Reports: Malaise, Weakness, Other (Feels "shaky"). Denies : Fever/Chills, Headaches, Loss of Appetite, Shortness of Breath - Related Data Allergies Allergy/AdvReac Type Severity Reaction Status Date / Time No Known Allergies Allergy Verified 02/09/17 17:57 Home Meds: Home Meds Alendronate Sodium [Fosamax] 70 mg PO WEEKLY 02/08/13 [History] Hydrochlorothiazide 12.5 mg PO DAILY 02/08/13 [History] Multivitamin [Multivitamins] 1 each PO DAILY 02/08/13 [History] Omeprazole [Prilosec] 20 mg PO DAILY 02/08/13 [History] Simvastatin [Zocor] 40 mg PO BEDTIME 02/08/13 [History] Potassium Chloride 10 meq PO DAILY 11/21/14 [History] Metoprolol Tartrate 50 mg PO BEDTIME 10/17/16 [History] Latanoprost 1 drop EYEBOTH BEDTIME 11/12/16 [History] Warfarin [Coumadin] 2.5 mg PO BEDTIME 11/12/16 [History] Cephalexin 500 mg PO BID #7 capsule 11/14/16 [Rx] Cephalexin [Take Home: Cephalexin 500 MG, 4 Cap Pack] 500 mg PO BID 11/17/16 [ History] Past Medical History - Past Health History Medical/Surgical History: Denies Medical/Surgical History HEENT History: Reports: Impaired Vision Cardiovascular History: Reports: High Cholesterol, Hypertension Genitourinary History: Reports: UTI, Recurrent Other Genitourinary History: recent uti [employer] History: Reports: Neurological History: Reports: CVA, TIA, Other (See Below) Other Neuro History: x2 strokes Psychiatric History: Reports: Dementia - Infectious Disease History Infectious Disease History: Reports: Other (See Below) Other Infectious Disease History: unknown - Past Surgical History GI Surgical History: Reports: Appendectomy Social & Family History - Family History Cardiac: Reports: Hypertension, [place] Neurological: Reports: CVA - Tobacco Use Smoking Status *Q: Unknown Ever Smoked Used Tobacco, but Quit: No Second Hand Smoke Exposure: No - Caffeine Use Caffeine Use: Reports: Coffee, Soda, Tea - Alcohol Use Days Per Week of Alcohol Use: 0 Number of Drinks Per Day: 1 Total Drinks Per Week: 0 - Recreational Drug Use Recreational Drug Use: No - Living Situation & Occupation Living situation: Reports: , with Spouse Occupation: Retired ED ROS GENERAL - Review of Systems Review Of Systems: See Below Constitutional: Reports: Malaise, Weakness. Denies: Fever, Chills HEENT: Reports: No Symptoms Respiratory: Denies: Shortness of Breath, Cough Cardiovascular: Denies: Chest Pain GI/Abdominal: Denies: Abdominal Pain, Nausea, Vomiting : Reports: No Symptoms Skin: Reports: No Symptoms Neurological: Reports: Confusion, Weakness. Denies: Headache Psychiatric: Reports: Confusion ED EXAM, GENERAL - Physical Exam Exam: See Below Exam Limited By: No Limitations General Appearance: Alert, No Apparent Distress Eye Exam: Bilateral Eye: EOMI Respiratory/Chest: No Respiratory Distress, Lungs Clear Cardiovascular: Regular Rate, Rhythm GI/Abdominal: Soft, Non-Tender Neurological: Alert, No Motor/Sensory Deficits, Disoriented (She is a little confused but that is baseline) Psychiatric: Normal Affect, Normal Mood Skin Exam: Warm, Dry Course - Vital Signs Last Recorded V/S: Last Vital Signs Temp 97.0 F 02/09/17 17:56 Pulse 64 02/09/17 17:56 Resp 16 02/09/17 17:56 BP 159/98 H 02/09/17 17:56 Pulse Ox 97 02/09/17 17:56 - Orders/Labs/Meds Orders: Active Orders 24 hr Category Date Time Status CULTURE URINE [RM] Stat Lab 02/09/17 19:47 Received Labs: Laboratory Tests 02/09/17 02/09/17 02/09/17 Range/Units 18:41 18:42 18:42 WBC 8.3 (4.5-11.0) K/uL RBC 4.58 (3.30-5.50) M/uL Hgb 13.6 (12.0-15.0) g/dL Hct 40.8 (36.0-48.0) % MCV 89 (80-98) fL MCH 30 (27-31) pg MCHC 33 (32-36) % Plt Count 323 (150-400) K/uL Neut % (Auto) 62 (36-66) % Lymph % (Auto) 21 L (24-44) % [place] % (Auto) 11 H (2-6) % Eos % (Auto) 5 H (2-4) % Baso % (Auto) 1 (0-1) % Sodium 141 (140-148) mmol/L Potassium 4.0 (3.6-5.2) mmol/L Chloride 106 (100-108) mmol/L Carbon Dioxide 29 (21-32) mmol/L Anion Gap 5.7 (5.0-14.0) mmol/L BUN 28 H D (7-18) mg/dL Creatinine 1.1 H (0.6-1.0) mg/dL Est Cr Clr Drug Dosing 27.83 mL/min Estimated GFR (MDRD) 47 L (>60) Glucose 118 H (74-106) mg/dL Calcium 9.0 (8.5-10.1) mg/dL Urine Color Yellow Urine Appearance Cloudy Urine pH 5.0 (4.5-8.0) Ur Specific [place] 1.020 (1.008-1.030) Urine Protein Negative (NEGATIVE) mg/dL Urine Glucose (UA) Normal (NEGATIVE) mg/dL Urine Ketones Negative (NEGATIVE) mg/dL Urine Occult Blood Moderate (NEGATIVE) Urine Nitrite Positive H (NEGATIVE) Urine Bilirubin Small (NEGATIVE) Urine Urobilinogen Normal (NORMAL) mg/dL Ur Leukocyte Esterase Small (NEGATIVE) Urine RBC 0-5 (0-5) Urine WBC 20-30 H (0-5) Ur Epithelial Cells Moderate Amorphous Sediment Few Urine Bacteria Many Urine Mucus Few Meds: Medications Discontinued Medications Generic Name Dose Route Start Last Admin Trade Name Sybil PRN Reason Stop Dose Admin Ceftriaxone Sodium 1 gm/ 0 gm 02/09/17 19:24 02/09/17 19:37 Lidocaine HCl 2.1 ml IM 02/09/17 19:25 1 inj ONETIME ONE Administration - Re-Assessments/Exams Free Text/Narrative Re-Assessment/Exam: 02/09/17 19:05 A catheter UA was obtained, and a CBC and BMP were obtained. She was observed for an hour and remained basically at baseline and asymptomatic. 02/09/17 19:25 White count is normal, labs are reassuring other than the UA being nitrite positive with some wbc's and bacteria. A culture was initiated and the patient was given 1 g of Rocephin IM. I don't think further treatment is necessary. She was discharged in her baseline condition and will be informed of urine culture results when available. They can return anytime if worsening or concerns. Departure - Departure Time of Disposition: 20:54 Disposition: Home, Self-Care 01 Condition: Fair Clinical Impression: Weakness UTI (urinary tract infection) Qualifiers: Urinary tract infection type: acute cystitis Hematuria presence: without hematuria Qualified Code(s): N30.00 - Acute cystitis without hematuria - Discharge Information Instructions: Weakness, [id number], Urinary Tract Infection, Adult, Easy-to- Read Referrals: PCP,None [Primary Care Provider] - Forms: ED Department Discharge Care Plan Goals: Continue your regular medications, and continue diet and activity as tolerated. Return any time if worsening or concerns. - My Orders Last 24 Hours: My Active Orders 02/09/17 19:47 CULTURE URINE [RM] Stat - Assessment/Plan Last 24 Hours: My Active Orders 02/09/17 19:47 CULTURE URINE [RM] Stat
[2017-02-09] MEDS ORDERED: cefTRIAXone 1 GM, Lidocaine 1% 2.1 ML IM ONE ×2 (19:24)
== END 2017-02-09 19:50 | disposition home or self-care (01) ==
LOC: JP.ED 17:31
DX: N30.00 Acute cystitis without hematuria (principal); R53.1 Weakness; E78.00 Pure hypercholesterolemia, unspecified; I10 Essential (primary) hypertension; F03.90 Unspecified dementia, unspecified severity, without behavioral disturbance, psychotic disturbance, mood disturbance, and anxiety; Z86.73 Personal history of transient ischemic attack (TIA), and cerebral infarction without residual deficits; Z90.49 Acquired absence of other specified parts of digestive tract; Z79.01 Long term (current) use of anticoagulants; Z79.899 Other long term (current) drug therapy
CPT/HCPCS: 36415; 80048; 81001; 85025; 87086; 96372; 99285; J0696; 87088; 87186; 99284

== ENCOUNTER 2017-02-19 17:36 | Emergency (ER) | payer MEDICARE, BC ==
[2017-02-19] MEDS ORDERED: cefTRIAXone 1 GM in Sodium Chloride 0.9% 50 ML IV ONE (18:51)
--- NOTE | 2017-02-19 18:53 | EDM.PDOC ---
ED HPI GENERAL MEDICAL PROBLEM - General Chief Complaint: Genitourinary Problem Stated Complaint: ILLNESS Time Seen by Provider: 02/19/17 18:52 Source of Information: Reports: Patient, Family History Limitations: Reports: No Limitations - History of Present Illness INITIAL COMMENTS - FREE TEXT/NARRATIVE: pt had a period where she was very confused today. She also said she was feeling quite ill. She actually wanted to come to the ER. Onset: Today Duration: Day(s): Location: Reports: Other (pt has a history of recurrent Utis) Associated Symptoms: Reports: Weakness - Related Data Allergies Allergy/AdvReac Type Severity Reaction Status Date / Time No Known Allergies Allergy Verified 02/09/17 17:57 Home Meds: Home Meds Alendronate Sodium [Fosamax] 70 mg PO WEEKLY 02/08/13 [History] Hydrochlorothiazide 12.5 mg PO DAILY 02/08/13 [History] Multivitamin [Multivitamins] 1 each PO DAILY 02/08/13 [History] Omeprazole [Prilosec] 20 mg PO DAILY 02/08/13 [History] Simvastatin [Zocor] 40 mg PO BEDTIME 02/08/13 [History] Potassium Chloride 10 meq PO DAILY 11/21/14 [History] Metoprolol Tartrate 50 mg PO BEDTIME 10/17/16 [History] Latanoprost 1 drop EYEBOTH BEDTIME 11/12/16 [History] Warfarin [Coumadin] 2.5 mg PO BEDTIME 11/12/16 [History] Cephalexin 500 mg PO BID #7 capsule 11/14/16 [Rx] Cephalexin [Take Home: Cephalexin 500 MG, 4 Cap Pack] 500 mg PO BID 11/17/16 [ History] Past Medical History - Past Health History Medical/Surgical History: Denies Medical/Surgical History HEENT History: Reports: Impaired Vision Cardiovascular History: Reports: High Cholesterol, Hypertension Genitourinary History: Reports: UTI, Recurrent Other Genitourinary History: recent uti [employer] History: Reports: Neurological History: Reports: CVA, TIA, Other (See Below) Other Neuro History: x2 strokes Psychiatric History: Reports: Dementia - Infectious Disease History Infectious Disease History: Reports: Other (See Below) Other Infectious Disease History: unknown - Past Surgical History GI Surgical History: Reports: Appendectomy Social & Family History - Family History Cardiac: Reports: Hypertension, [place] Neurological: Reports: CVA - Tobacco Use Smoking Status *Q: Never Smoker Used Tobacco, but Quit: No Second Hand Smoke Exposure: No - Caffeine Use Caffeine Use: Reports: Coffee - Alcohol Use Days Per Week of Alcohol Use: 0 Number of Drinks Per Day: 1 Total Drinks Per Week: 0 - Recreational Drug Use Recreational Drug Use: No - Living Situation & Occupation Living situation: Reports: , with Spouse Occupation: Retired ED ROS GENERAL - Review of Systems Review Of Systems: See Below Constitutional: Reports: Malaise, Other (pt had a period of confusion but that has improved. ) HEENT: Reports: No Symptoms Respiratory: Reports: No Symptoms Cardiovascular: Reports: No Symptoms Endocrine: Reports: No Symptoms GI/Abdominal: Reports: No Symptoms : Reports: Other (Pt has urinary frequency. ) Musculoskeletal: Reports: No Symptoms ED EXAM, RENAL/ - Physical Exam Exam: See Below Text/Narrative:: pt arrived because she was feeling sick this afternoon and she had a period that she was much more confused. Exam Limited By: No Limitations General Appearance: Alert, Anxious Ears: Normal TMs Nose: Normal Inspection Throat/Mouth: Normal Inspection Head: Atraumatic Neck: Normal Inspection Respiratory/Chest: No Respiratory Distress Cardiovascular: Regular Rate, Rhythm GI/Abdominal: Soft, Non-Tender (Female) Exam: Deferred Rectal (Female) Exam: Deferred Back Exam: Normal Inspection Extremities: Normal Inspection Neurological: Alert, Oriented, Normal Cognition, Other ( Pt is very vague with her answers. ) Course - Vital Signs Last Recorded V/S: Last Vital Signs Temp 36.2 C 02/19/17 19:46 Pulse 52 L 02/19/17 19:46 Resp 15 02/19/17 19:46 BP 131/66 02/19/17 19:46 Pulse Ox 96 02/19/17 19:46 - Orders/Labs/Meds Labs: Laboratory Tests 02/19/17 02/19/17 Range/Units 19:00 19:00 WBC 9.7 (4.5-11.0) K/uL RBC 4.64 (3.30-5.50) M/uL Hgb 13.8 (12.0-15.0) g/dL Hct 41.2 (36.0-48.0) % MCV 89 (80-98) fL MCH 30 (27-31) pg MCHC 34 (32-36) % Plt Count 337 (150-400) K/uL Neut % (Auto) 68 H (36-66) % Lymph % (Auto) 18 L (24-44) % [place] % (Auto) 11 H (2-6) % Eos % (Auto) 3 (2-4) % Baso % (Auto) 1 (0-1) % Sodium 139 L (140-148) mmol/L Potassium 3.8 (3.6-5.2) mmol/L Chloride 104 (100-108) mmol/L Carbon Dioxide 27 (21-32) mmol/L Anion Gap 11.8 (5.0-14.0) mmol/L BUN 31 H (7-18) mg/dL Creatinine 1.2 H (0.6-1.0) mg/dL Est Cr Clr Drug Dosing 25.51 mL/min Estimated GFR (MDRD) 43 L (>60) Glucose 98 (74-106) mg/dL Calcium 9.6 (8.5-10.1) mg/dL Total Bilirubin 0.4 (0.2-1.0) mg/dL AST 23 (15-37) U/L ALT 25 (12-78) U/L Alkaline Phosphatase 76 (46-116) U/L Total Protein 8.1 (6.4-8.2) g/dL Albumin 3.5 (3.4-5.0) g/dL Globulin 4.6 H (2.3-3.5) g/dL Albumin/Globulin Ratio 0.8 L (1.2-2.2) Meds: Medications Discontinued Medications Generic Name Dose Route Start Last Admin Trade Name Sybil PRN Reason Stop Dose Admin Sodium Chloride 1,000 mls @ 999 mls/hr 02/19/17 19:00 Normal Saline IV ASDIRECTED [facility] Ceftriaxone Sodium 1 gm/ 50 mls @ 100 mls/hr 02/19/17 18:51 02/19/17 19:07 Sodium Chloride IV 02/19/17 19:20 100 mls/hr ONETIME ONE Administration Sodium Chloride 1,000 mls @ 400 mls/hr 02/19/17 19:00 02/19/17 19:04 Normal Saline IV 400 mls/hr ASDIRECTED [facility] Administration - Re-Assessments/Exams Free Text/Narrative Re-Assessment/Exam: 02/19/17 21:16 Iv was started and she was given a liter of fluids. She was given 1 gm of rocephen. She will return tomorrow for another gram of rocephen. Departure - Departure Time of Disposition: 20:34 Disposition: Home, Self-Care 01 Condition: Fair Clinical Impression: Dehydration, Confusion UTI (urinary tract infection) Qualifiers: Urinary tract infection type: acute cystitis Hematuria presence: without hematuria Qualified Code(s): N30.00 - Acute cystitis without hematuria - Discharge Information Instructions: Urinary Tract Infection, Adult Referrals: Artemio Florez MD [Primary Care Provider] - Forms: ED Department Discharge Care Plan Goals: encourage fluids, rtc tomorrow for rocephen 1 gm iv. Leave the iv in place tonight. tomorrow will start her on augmentin 875 bid for 1 week.Use yogurt or probiotic while on augmentin.
[2017-02-19] MEDS ORDERED: Sodium Chloride 0.9% 1,000 ML IV SCH ×2 (19:00)
[2017-02-19 19:47] VITALS: BP 131/66
== END 2017-02-19 20:49 | disposition home or self-care (01) ==
LOC: JP.ED 17:36
DX: E86.0 Dehydration (principal); N30.00 Acute cystitis without hematuria; R41.0 Disorientation, unspecified; E78.00 Pure hypercholesterolemia, unspecified; I10 Essential (primary) hypertension; Z87.440 Personal history of urinary (tract) infections; Z86.73 Personal history of transient ischemic attack (TIA), and cerebral infarction without residual deficits; Z79.899 Other long term (current) drug therapy; Z90.49 Acquired absence of other specified parts of digestive tract
CPT/HCPCS: 36415; 80053; 85025; 96361; 96365; 99285; J0696; J7040; J7050; 99284

== ENCOUNTER 2017-03-09 19:21 | Emergency (ER) | payer MEDICARE, BC ==
[2017-03-09 20:08] VITALS: BP 146/88
--- NOTE | 2017-03-09 21:43 | EDM.PDOC ---
ED HPI GENERAL MEDICAL PROBLEM - General Chief Complaint: General Stated Complaint: NOT FEELING WELL Time Seen by Provider: 03/09/17 21:21 Source of Information: Reports: Patient, Family (spouse), Old Records, RN Notes Reviewed History Limitations: Reports: Other (dementia) - History of Present Illness INITIAL COMMENTS - FREE TEXT/NARRATIVE: brought by her Chief complaint Patient complaint is not feeling well brought her in because of weakness, not able to walk History of present illness 81-year-old female with dementia, unable to give significant history, just reports that she doesn't feel well Her reports that this afternoon she became so weak that she wasn't able to ambulate using her walker as usual. He states he gets worried, she has stroke previously and it worried that she might have had another stroke. No fever no cough no headache no vomiting no diarrhea no urinary symptoms Appetite was normal earlier in the day. denies pain Pain Score (Numeric/FACES): 0 - Related Data Allergies Allergy/AdvReac Type Severity Reaction Status Date / Time No Known Allergies Allergy Verified 03/09/17 20:08 Home Meds: Home Meds Alendronate Sodium [Fosamax] 70 mg PO WEEKLY 02/08/13 [History] Hydrochlorothiazide 12.5 mg PO DAILY 02/08/13 [History] Multivitamin [Multivitamins] 1 each PO DAILY 02/08/13 [History] Omeprazole [Prilosec] 20 mg PO DAILY 02/08/13 [History] Simvastatin [Zocor] 40 mg PO BEDTIME 02/08/13 [History] Potassium Chloride 10 meq PO DAILY 11/21/14 [History] Metoprolol Tartrate 50 mg PO BEDTIME 10/17/16 [History] Latanoprost 1 drop EYEBOTH BEDTIME 11/12/16 [History] Warfarin [Coumadin] 2.5 mg PO BEDTIME 11/12/16 [History] Cephalexin [Take Home: Cephalexin 500 MG, 4 Cap Pack] 500 mg PO BID 11/17/16 [ History] Past Medical History - Past Health History Medical/Surgical History: Denies Medical/Surgical History HEENT History: Reports: Impaired Vision Cardiovascular History: Reports: High Cholesterol, Hypertension Genitourinary History: Reports: UTI, Recurrent Other Genitourinary History: recent uti [employer] History: Reports: Neurological History: Reports: CVA, TIA, Other (See Below) Other Neuro History: x2 strokes Psychiatric History: Reports: Dementia - Infectious Disease History Infectious Disease History: Reports: Chicken Pox, Measles Other Infectious Disease History: unknown - Past Surgical History GI Surgical History: Reports: Appendectomy Social & Family History - Family History Cardiac: Reports: Hypertension, [place] Neurological: Reports: CVA - Tobacco Use Smoking Status *Q: Never Smoker Used Tobacco, but Quit: No Second Hand Smoke Exposure: No - Caffeine Use Caffeine Use: Reports: Coffee - Alcohol Use Days Per Week of Alcohol Use: 0 Number of Drinks Per Day: 1 Total Drinks Per Week: 0 - Recreational Drug Use Recreational Drug Use: No - Living Situation & Occupation Living situation: Reports: , with Spouse Occupation: Retired ED ROS GENERAL - Review of Systems Review Of Systems: Unable To Obtain (due to dementia) ED EXAM, GENERAL - Physical Exam Exam: See Below Exam Limited By: No Limitations General Appearance: Alert, No Apparent Distress, Other (mild elevation systolic blood pressure otherwise vital signs normal) Eye Exam: Bilateral Eye: EOMI, Normal Inspection Nose: Normal Inspection Throat/Mouth: Normal Inspection, Normal Oropharynx Head: Atraumatic, Normocephalic, Other (no facial drooping, unable to follow all directions such as pursing her cheeks but no facial weakness noted) Neck: Supple, Non-Tender Respiratory/Chest: No Respiratory Distress, Lungs Clear, No Accessory Muscle Use Cardiovascular: Normal Peripheral Pulses, Regular Rate, Rhythm GI/Abdominal: Normal Bowel Sounds, Soft, Non-Tender Back Exam: Normal Inspection, Other (nontender) Extremities: No Pedal Edema Neurological: Alert, Confused (due to dementia), Memory Loss Recent Events ( ongoing) Psychiatric: Normal Mood Skin Exam: Warm, Dry, Intact, Normal Color, No Rash Lymphatic: No Adenopathy Course - Vital Signs Last Recorded V/S: Last Vital Signs Temp 36.7 C 03/09/17 20:07 Pulse 65 03/09/17 20:07 Resp 16 03/09/17 20:07 BP 146/88 H 03/09/17 20:07 Pulse Ox 96 03/09/17 20:07 - Re-Assessments/Exams Free Text/Narrative Re-Assessment/Exam: 03/09/17 23:43 81-year-old female who came in, not feeling well, her was concerned about her weakness today. However by the time I evaluated her she felt better, was not showing any signs of acute illness. Examination reassuring Emulated with a walker in emergency department without any difficulty. Discharge home Return if she develops fever or shortness of breath abdominal pain or other new symptoms Departure - Departure Time of Disposition: 21:42 Disposition: Home, Self-Care 01 Condition: Good Clinical Impression: Malaise, Generalized weakness - Discharge Information Instructions: Weakness Referrals: PCP,None [Primary Care Provider] - Forms: ED Department Discharge Additional Instructions: you seem to have improved from feeling unwell earlier tonight No signs of stroke on examination No signs of serious illness or infection currently Follow-up with your doctor next week if you feel unwell again Return to emergency of severe weakness or fever, that chest pains or abdominal pains or difficulties breathing
== END 2017-03-09 21:50 | disposition home or self-care (01) ==
LOC: JP.ED 19:21
DX: R53.1 Weakness (principal); R53.81 Other malaise; Z79.899 Other long term (current) drug therapy; I10 Essential (primary) hypertension; E78.00 Pure hypercholesterolemia, unspecified; Z87.440 Personal history of urinary (tract) infections; Z90.49 Acquired absence of other specified parts of digestive tract; Z86.73 Personal history of transient ischemic attack (TIA), and cerebral infarction without residual deficits; F03.90 Unspecified dementia, unspecified severity, without behavioral disturbance, psychotic disturbance, mood disturbance, and anxiety
CPT/HCPCS: 99283